=== PATIENT | male | born 1935 | race Caucasian/White ===

== ENCOUNTER 2020-01-26 13:34 | Outpatient (CLI) | payer OTHER, SELFPAY ==
--- NOTE | 2020-01-27 08:38 | ONC CON_ITS ---
Dr. Brownlee New Patient Note Patient: Simeon Harris Unit #: [id number]: 1935 Dicatated By: Brigido Brownlee M.D.Date of Visit: Jan 26, 2020 Onc MED New Patient/Consult Referring Physician: Libra Crowley A.P.N. Chief Complaint: Renal cell cancer. 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 He has hypertension, hyperlipidemia, and chronic kidney disease. He also has early stage dementia. In 2019 he was found to have a right renal mass, confirmed on biopsy to be papillary renal cell carcinoma. On 10/21/2018 he underwent robotic assisted retroperitoneal laparoscopic right partial nephrectomy. Pathology showed grade 1 papillary renal cell carcinoma, type I with oncocytic features measuring 4.9 x 3.3 x 3.3 cm. The tumor was confined to the kidney. Pathologic staging was T1b, NX, as there was no lymph node included in the surgical specimen. Clinically he was N0, M0 (stage I). On 12/03/2019 he was evaluated with noncontrast CT urinary calculi protocol. 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 There was evidence of limited partial right nephrectomy without evidence of local recurrence along the operative bed. There were multiple left renal cysts without obvious solid left renal lesion. The most significant finding was increase in size of an aortocaval lymph node measuring 2.2 x 2.3 cm compared to 2.0 x 2.0 cm on the previous study. The findings were suspicious for metastatic involvement. On 01/04/[address] directed needle biopsy of the aortocaval lymph node. Pathology showed fragments of metastatic papillary renal cell carcinoma. It was noted that there was no lymph node tissue present. Staging PET/CT on 01/18/2020 showed a small focus of increased activity adjacent to the surgical site in the lower pole of the right kidney, maximum SUV 8.56, felt to be nonspecific and possibly indicative of tumor recurrence or activity in an adjacent calyx. Multiple hypoattenuating structures in the left kidney showed no FDG uptake and were felt to probably represent cysts. An enlarged anterior aortocaval lymph node situated just below the crossing of the renal vein with maximum SUV 5.92 was felt to possibly represent metastatic disease. No other FDG avid lymph nodes were identified. A focus of relatively increased activity in the bowel in the lower abdomen with SUV 12.[address] soft tissue lesion and was felt to most likely be inflammatory/physiologic. There were no other areas of abnormal uptake on that study. He is seen now for further management. He does report having some fatigue, though lately his energy has been a little better again. He is pretty active and doing light work. ECOG score is 1. His appetite has been good. His weight is been stable. He has no fever or night sweats. He has no shortness of breath, cough, or chest pain. He has noticed a change in his bowel habit, as he tends to have frequent small stools throughout the day. He has no other GI complaints. He has urinary frequency and nocturia. He has some pain in his right shoulder. He currently has no other joint or bone pain. He does not complain of headache or dizziness. He has no focal neurologic symptoms. Past Medical History: His medical history includes chronic kidney disease, degenerative arthritis, dementia, hyperlipidemia, hypertension, peripheral arterial disease, and retinal detachment, left eye. Past Surgical History: He underwnent robotic assisted retroperitoneal laparoscopic right partial nephrectomy on 10/21/2018, and he underwent CT directed needle biopsy of aortocaval lymph node on 01/04/2020. His other surgical/procedural history includes ilateral cataract excisions, laser surgery on the left eye x 2 for detached retina, open reduction/internal fixation for left hip fracture, and tonsillectomy. Medications: cloNIDine HCl 1 Tablet (of 0.1 mg) Oral daily, Cozaar 1 Tablet (of 100 mg) Oral daily, Lovastatin 1 Tablet (of 10 mg) Oral daily, Multivitamin 1 Tablet Oral daily, Vitamin C 1 Tablet (of 500 mg) Oral daily Allergies: Aleve Social History: Mr. Harris is and he is an unknown. Mr. Harris has never smoked. He has no history of drinking. He is a non-smoker. He does not drink alcohol. Family History: Father with dementia at age 77. Mother at 92 of old age. One brother of pneumonia at age 70. Another brother has been treated for prostate cancer. Two sisters of heart failure, one of whom also had diabetes. A son of heart failure at age 50. Review Of Symptoms: Constitutional - He generally feels good. His energy is recently better than it had been. He is able to do light work. His appetite is good and his weight is stable. No fever, night sweats, or hot flashes. ECOG score is 1, Eyes - No recent change in vision, ENMT - He has hearing loss. No sinus congestion/drainage. No mouth sores. No sore throat or difficulty swallowing. He wears bilateral hearing aids, Hematologic/Lymphatic - He bruises easily, Respiratory - No shortness of breath. No cough. No pleuritic pain or hemoptysis, Cardiovascular - No angina pain. No palpitations, Gastrointestinal - No nausea or vomiting. No heartburn or acid reflux. No diarrhea. He has been having constipation, he denies taking anything for this. No blood in the stool or black stools, Genitourinary (M) - No dysuria or hematuria. He has urinary frequency and noctura. No urgency or incontinence, Musculoskeletal - He has arthritis pain in his right shoulder. This is chronic, Integumentary - He has had skin cancers excised, Neurologic - No headache or dizziness. No numbness or tingling. No other focal neurologic symptoms, Psychiatric - No anxiety or depression. No insomnia. He has early stage dementia. Vital Signs: Performed on Jan 26, 2020 14:15: 0, 26.12, 2.14 sq.m, 73.00 in, 97 %, 67 /min, 22 /min, 154/77 mm(hg) (HIGH), 98.3 F (LOW), and 198.0 lbs (HIGH). Physical Examination: Constitutional - He looks good generally, Eyes - Sclerae nonicteric. Conjunctivae clear, ENMT - No lesions noted in the oral cavity, Neck - No mass or thyromegaly, Hematologic/Lymphatic - No cervical, clavicular, or axillary adenopathy, Respiratory - Lungs are clear with good air movement bilaterally, Cardiovascular - Heart rhythm is regular. There is a II/ systolic murmur. There is no gallop or rub noted, Abdomen - Soft and non-tender. Liver and spleen are not enlarged. There is no abdominal mass or ascites noted and there is no inguinal adenopathy, Back/Spine - No spine or CVA tenderness noted, Extremities - No edema. Dorsalis pedis pulses are palpable bilaterally, Integumentary - No rashes. No suspicious skin lesions noted, Neurologic - No focal neurologic deficits noted. Impression: 1. Patient with grade 1 papillary renal cell carcinoma, type I with oncocytic features, for which he underwent robotic assisted retroperitoneal laparoscopic right partial nephrectomy on 10/21/2018. His disease was pathologic stage T1b, NX. 2. He now has evidence of stage IV disease with biopsy-proven metastatic papillary renal cell carcinoma involving an aortocaval lymph node. His staging PET/CT on 01/18/2020 showed mild FDG uptake in the enlarged node, SUV 5.92. Also noted was a small focus of uptake adjacent to the surgical site in the lower pole of the right kidney felt to be nonspecific but possibly indicative of tumor recurrence. His other medical illnesses include: 3. Hypertension. 4. Hyperlipidemia. 5. Chronic kidney disease, stage IV. 6. Peripheral arterial disease. 7. Degenerative arthritis. 8. Early stage dementia. Plan: I reviewed the CT and PET/CT findings and the pathology results. We discussed the clinical implications. He has documented recurrence of the renal cell cancer with involvement in a slowly enlarging aortocaval lymph node. There is a possibility of additional recurrence at the surgical site, but that was felt to be a nonspecific finding. There were no other suspicious findings on the PET/CT. I reviewed treatment options, and given his age and underlying medical illnesses he is probably not a suitable candidate for surgical resection, and the location of the lesion is such that it is not likely to be amenable to SBRT. As such, the best option available would be a trial of therapy with a tyrosine kinase inhibitor, which in the first line would most likely be sunitinib. We discussed the fact that it would potentially have side effects which may include fatigue, hypertension, skin rash, proteinuria, and low blood counts as well as some risk of hepatic and/or cardiac toxicity, among others. We also discussed the fact that his disease has been progressing very slowly and with localized involvement I would expect a significant time interval before his disease becomes symptomatic, at least in the range of 1 to 2 years. In that regard, observation/symptomatic management may be his best option, at least initially. I do want to review the PET/CT with the radiation oncologist, but my expectation is that we will just want to follow this closely with serial, noncontrast CT scans. Both patient and his seem very satisfied with this recommendation. At this point I will tentatively plan follow-up at a 6-month interval. Signed By: Brigido Brownlee M.D. <<Signature on File>>
== END 2020-01-26 13:35 | disposition home or self-care (01) ==
PROVIDERS: PCP Nurse Practitioner; Visit Provider Internal Medicine Medical Oncology
DX: C64.1 Malignant neoplasm of right kidney, except renal pelvis (principal); C77.2 Secondary and unspecified malignant neoplasm of intra-abdominal lymph nodes; I12.9 Hypertensive chronic kidney disease with stage 1 through stage 4 chronic kidney disease, or unspecified chronic kidney disease; N18.4 Chronic kidney disease, stage 4 (severe); E78.5 Hyperlipidemia, unspecified; I73.9 Peripheral vascular disease, unspecified; M19.90 Unspecified osteoarthritis, unspecified site; F03.90 Unspecified dementia, unspecified severity, without behavioral disturbance, psychotic disturbance, mood disturbance, and anxiety; Z90.5 Acquired absence of kidney
CPT/HCPCS: 99205

== ENCOUNTER 2020-07-26 13:16 | Outpatient (CLI) | payer OTHER, SELFPAY ==
--- NOTE | 2020-07-26 13:22 | CT_ITS ---
WS: [id number] CT ABDOMEN AND PELVIS NONCONTRAST HISTORY: RENAL CELL CARCINOMA TECHNIQUE: Imaging performed through the abdomen and pelvis. Coronal and sagittal reformats are submi tted. All CT scans at [facility] use at least one of these dose optimization techniques: automated exposure control; mA and/or kV adjustment per patient size (includes targeted exams where d ose is matched to clinical indication); or iterative reconstruction. DLP: 1220.75 mGycm COMPARISON: 12/03/2019. PET CT 01/18/2020. Lower thorax: Mild emphysema the lung bases. Heart size is normal. Small hiatal hernia. Liver: Negative noncontrast CT. Gallbladder: Normal gallbladder. Pancreas: Mild atrophy and fatty replacement. No mass identified. Spleen: Normal. Adrenal glands: Calcified RIGHT adrenal gland with no mass. LEFT adrenal gland is negative. Right kidney: Small RIGHT kidney. Postsurgical changes are noted along the mid and lower pole of the kidney from prior tumor resection most likely. There is mild adjacent cortical scarring. Similar to t he prior study from 2019. No obstruction. Left kidney: Numerous cystic masses in the LEFT kidney are stable. None of the masses have increased in size. These are probably cysts. Cannot further characterize without IV contrast. Aorta: Mild atherosclerosis abdominal aorta with no aneurysm. Aortocaval mass measures 2.4 x 2.0 cm. This was also present on the study of 12/02/2020 without increa se in size. Subcentimeter lymph node along the proximal LEFT iliac chain. GI tract: No obstructive pattern. Mild diffuse constipation. The appendix is normal. Severe distal co jakob diverticular disease. No evidence for acute diverticulitis. Abdominal wall: RIGHT lateral abdominal wall hernia contains fat. There is a small amount of colon th e orifice of the hernia. No obstructive pattern. Pelvis: No free fluid or adenopathy. Normally distended urinary bladder. Osseous structures: LEFT hip ORIF. CT/CT abdomen pelvis wo con [id number] IMPRESSION: 1. Status post partial RIGHT nephrectomy. Stable postsurgical changes. 2. LEFT renal cysts. Cannot evaluate for solid tumors or subtle tumors without IV contrast. 3. Aortocaval mass is probably a cluster of lymph nodes measuring 2.4 x 2.0 cm . Not significantly increased in size since 12/03/2019 but increased since 05/06. 4. Atherosclerosis aorta. 5. Severe distal colon diverticulosis without diverticulitis.
== END 2020-07-26 13:17 | disposition home or self-care (01) ==
LOC: RADWPI 13:19
PROVIDERS: PCP Nurse Practitioner; Visit Provider Internal Medicine Medical Oncology
DX: C64.1 Malignant neoplasm of right kidney, except renal pelvis (principal); K57.90 Diverticulosis of intestine, part unspecified, without perforation or abscess without bleeding; I70.0 Atherosclerosis of aorta; Q61.02 Congenital multiple renal cysts; Z90.5 Acquired absence of kidney
CPT/HCPCS: 74176

== ENCOUNTER 2020-08-01 08:57 | Outpatient (CLI) | payer OTHER, SELFPAY ==
--- NOTE | 2020-08-01 09:36 | ONC FU_ITS ---
Dr. Brownlee Patient Follow-Up Note Patient: Simeon Harris Unit #: [id number]: 1935 Dicatated By: Brigido Brownlee M.D.Date of Visit:Aug 01, 2020 Onc Med Follow-up/Prog Note Chief Complaint: Renal cell cancer. 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 He has hypertension, hyperlipidemia, and chronic kidney disease. He also has early stage dementia. In 2018 he was found to have a right renal mass, confirmed on biopsy to be papillary renal cell carcinoma. On 10/21/2018 he underwent robotic assisted retroperitoneal laparoscopic right partial nephrectomy. Pathology showed grade 1 papillary renal cell carcinoma, type I with oncocytic features measuring 4.9 x 3.3 x 3.3 cm. The tumor was confined to the kidney. Pathologic staging was T1b, NX, as there was no lymph node included in the surgical specimen. Clinically he was N0, M0 (stage I). On 12/03/2019 he was evaluated with noncontrast CT urinary calculi protocol. 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 There was evidence of limited partial right nephrectomy without evidence of local recurrence along the operative bed. There were multiple left renal cysts without obvious solid left renal lesion. The most significant finding was increase in size of an aortocaval lymph node measuring 2.2 x 2.3 cm compared to 2.0 x 2.0 cm on the previous study. The findings were suspicious for metastatic involvement. On 01/04/[address] directed needle biopsy of the aortocaval lymph node. Pathology showed fragments of metastatic papillary renal cell carcinoma. It was noted that there was no lymph node tissue present. Staging PET/CT on 01/18/2020 showed a small focus of increased activity adjacent to the surgical site in the lower pole of the right kidney, maximum SUV 8.56, felt to be nonspecific and possibly indicative of tumor recurrence or activity in an adjacent calyx. Multiple hypoattenuating structures in the left kidney showed no FDG uptake and were felt to probably represent cysts. An enlarged anterior aortocaval lymph node situated just below the crossing of the renal vein with maximum SUV 5.92 was felt to possibly represent metastatic disease. No other FDG avid lymph nodes were identified. A focus of relatively increased activity in the bowel in the lower abdomen with SUV 12.[address] soft tissue lesion and was felt to most likely be inflammatory/physiologic. There were no other areas of abnormal uptake on that study. I had seen him initially on 01/26/2020. As he appeared to have slowly progressive, asymptomatic disease, we opted to just continue with observation/expectant management. His repeat CT abdomen/pelvis on 07/26/2020 showed an aortocaval mass measuring 2.4 x 2.0 cm, unchanged compared to the previous study from November 2019. Subcentimeter lymph nodes were noted along the proximal left iliac chain. Numerous cystic masses in the left kidney also appeared stable. Also noted was evidence of severe distal colon diverticulosis but without diverticulitis. Overall, there was no evidence of disease progression. He is seen for a follow-up visit. He notes that he has gone downhill a lot since he turned 80. His indicates that he has recently been more fatigued and that he takes a lot of naps. He is still doing light work. ECOG score is 1. His appetite has not been as good, but his weight is up a few pounds. He does not have fever or night sweats. He does not complain of shortness of breath, cough, or chest pain. His other main complaint is that he has had a change in his bowel habit with 6-8 small bowel movements daily, described as a dab of stool at a time. It is not diarrhea, though. He does have to wear a diaper. It has been getting gradually worse over a couple of years. His last colonoscopy was done in [place], estimated in the range of 10 years ago. He also has more frequent urination with associated nocturia. He has arthritis pain in his shoulders, especially at night, and he does take a pain pill at bedtime. He does not complain of headache or dizziness, and he has no focal neurologic symptoms. He does have ongoing memory issues. Medications: cloNIDine HCl 1 Tablet (of 0.1 mg) Oral daily, Cozaar 1 Tablet (of 100 mg) Oral daily, Lovastatin 1 Tablet (of 10 mg) Oral daily, Multivitamin 1 Tablet Oral daily, Vitamin C 1 Tablet (of 500 mg) Oral daily Allergies: Aleve Vital Signs: Performed on Aug 01, 2020 08:54 Height - 73.00 in Weight - 204 lbs (HIGH) BSA - 2.17 sq.m BMI - 26.91 Temperature - 97.0 F (LOW) Pulse - 62 /min Respiration - 18 /min BP - 140/80 mm(hg) O2 Sat - 96 % Pain - 0 Physical Examination: Constitutional - He looks pretty good generally, Eyes - Sclerae nonicteric. Conjunctivae clear, ENMT - No lesions noted in the oral cavity, Hematologic/Lymphatic - No cervical, clavicular, or axillary adenopathy, Respiratory - Lungs are clear with good air movement bilaterally, Cardiovascular - Heart rhythm is regular. There is a II/ systolic murmur. There is no gallop or rub noted, Abdomen - Mildly distended and tympanic. Liver and spleen are not enlarged. There is no abdominal mass or ascites noted and there is no inguinal adenopathy, Extremities - Mild edema, Neurologic - No focal neurologic deficits noted. Lab/Imaging: Test performed on Jun 30, 2020 10:47 TSH 3.043 uU/mL Cholesterol, Total 157 mg/dL Glucose 85 mg/dL Vitamin D (25-Hydroxy) 38.7 ng/mL BUN 30 mg/dL HDL Cholesterol 30.4 mg/dL Creatinine 2.03 mg/dL LDL Cholesterol 57.8 mg/dL Cr Clearance (Est) 33.80 mL/min Triglycerides 305 mg/dL Sodium 142 mmol/L Potassium 5.7 mmol/L Chloride 108 mmol/L CO2 24 mmol/L Calcium 9.2 mg/dL Protein, Total 8.1 g/dL Albumin 4.5 g/dL Bilirubin, Total 0.6 mg/dL Alkaline Phosphatase 60 IU/L AST (SGOT) 18 IU/L ALT (SGPT) 16 IU/L Hemoglobin A1C 5.5 % Ua Color YELLOW WBC 7.3 10^9/L RBC 4.32 10^12/L Ua Appearance CLEAR HGB 13.4 g/dL Ua Specific [place] 1.021 HCT 41.6 % Ua pH 7 MCV 96.3 fl Ua Protein 30 MG/DL MCH 31 pg Ua Glucose NEGATIVE MCHC 32.2 g/dL Ua Ketones NEGATIVE RDW 12.1 % Ua Blood NEGATIVE Platelet Count 243 10^9/L Ua Leuk Esterase NEGATIVE MPV 9.4 fL Ua Nitrites NEGATIVE Neutrophils (Gran) 4.26 10^9/L Ua Bilirubin NEGATIVE Lymphocytes 2.1754 10^9/L Ua Urobilinogen NORMAL Monocytes 0.7154 10^9/L Eosinophils 0.0511 10^9/L Basophils 0.0584 10^9/L U Micro: Mucus RARE Problem List: 1. Grade 1 papillary renal cell carcinoma, type I with oncocytic features, for which he underwent robotic assisted retroperitoneal laparoscopic right partial nephrectomy on 10/21/2018. His disease was pathologic stage T1b, NX. He had subsequent progression to stage IV with biopsy-proven metastatic papillary renal cell carcinoma involving an aortocaval lymph node in December 2019. 2. Hypertension. 3. Hyperlipidemia. 4. Chronic kidney disease, stage IV. 5. Peripheral arterial disease. 6. Degenerative arthritis. 7. Early stage dementia. Problems Addressed with this Encounter and Plan: Patient with grade 1 papillary renal cell carcinoma, type I with oncocytic features, for which he underwent robotic assisted retroperitoneal laparoscopic right partial nephrectomy on 10/21/2018. His disease was pathologic stage T1b, NX. He had subsequent progression to stage IV disease with biopsy-proven metastatic papillary renal cell carcinoma involving an aortocaval lymph node in December 2019. His staging PET/CT on 01/18/2020 showed mild FDG uptake in the enlarged node, SUV 5.92. Also noted was a small focus of uptake adjacent to the surgical site in the lower pole of the right kidney felt to be nonspecific but possibly indicative of tumor recurrence. I had seen him initially on 01/26/2020. Given his age and underlying medical illnesses, we opted initially to just monitor on observation/expectant management. During follow-up there has been some further decline in his energy/activity tolerance and also is reporting a change in his bowel habit. Overall, though, he is still doing pretty well clinically, and his repeat CT abdomen/pelvis shows no change in the aortocaval mass or other evidence of disease progression. As such, he remains on observation/expectant management. I will see him again with repeat CT abdomen/pelvis in 3 months. Signed By: Brigido Brownlee M.D. <<Signature on File>>
== END 2020-08-01 08:58 | disposition home or self-care (01) ==
LOC: ONCMED 08:58
PROVIDERS: PCP Nurse Practitioner; Visit Provider Internal Medicine Medical Oncology
DX: C64.1 Malignant neoplasm of right kidney, except renal pelvis (principal); C77.2 Secondary and unspecified malignant neoplasm of intra-abdominal lymph nodes; Z90.5 Acquired absence of kidney
CPT/HCPCS: 99214

== ENCOUNTER 2020-10-27 15:05 | Outpatient (CLI) | payer OTHER, SELFPAY ==
[2020-10-27 16:04] LABS: Albumin Level 4.3 g/dL (3.5-5.2); Anion Gap 14.7 (5-19); Blood Urea Nitrogen 33 mg/dL (8-23); Calcium 8.7 mg/dL (8.5-10.5); Carbon Dioxide 23 mmol/L (22-29); Chloride 108 mmol/L (98-107); Glucose 101 mg/dL (65-115); Phosphorus 4.5 mg/dL (2.5-4.5); Potassium 5.7 mmol/L (3.5-5.1); Sodium 140 mmol/L (136-145)
[2020-10-27 16:18] LABS: Creatinine Urine, Random 161 mg/dL (39-259); Microalbum Creatinine Ratio Ur 19 mg/dL (0-20); Microalbumin Random Urine 3 ug/dL (0-20)
== END 2020-10-27 15:06 | disposition home or self-care (01) ==
PROVIDERS: PCP Nurse Practitioner; Visit Provider Internal Medicine Nephrology
DX: N18.32 Chronic kidney disease, stage 3b (principal)
CPT/HCPCS: 80069; 82044

== ENCOUNTER 2020-11-02 09:42 | Outpatient (CLI) | payer OTHER, SELFPAY ==
--- NOTE | 2020-11-02 09:50 | CT_ITS ---
WS: [id number] CT ABDOMEN AND PELVIS NONCONTRAST HISTORY: RENAL CELL CANCER TECHNIQUE: Imaging performed through the abdomen and pelvis. Coronal and sagittal reformats are submi tted. All CT scans at [facility] use at least one of these dose optimization techniques: automated exposure control; mA and/or kV adjustment per patient size (includes targeted exams where d ose is matched to clinical indication); or iterative reconstruction. DLP: 1152.45 mGycm COMPARISON: 07/26/2020, 12/03/2019 and 05/06/2018 Lower thorax: Mild pulmonary hyperexpansion. Linear scarring at the lung bases. No pulmonary nodule o r mass. Heart size is normal. Small hiatal hernia. Liver: Unenhanced. No abnormality. Gallbladder: Normal gallbladder. Pancreas: Normal size and attenuation. Normal pancreatic duct. No pancreatitis or mass. Spleen: Normal. Adrenal glands: Shrunken calcified RIGHT adrenal gland. Stable. Negative LEFT adrenal gland. Right kidney: Partial RIGHT nephrectomy. Postsurgical sutures are noted along the posterior RIGHT kid mag. There is a small amount of stranding adjacent to the surgical clips. No new mass is identified o n this unenhanced study. No obstruction. Left kidney: Normal size kidney with multiple cystic masses. There is a large cortical cyst with a ma ximum diameter of 5.7 cm from the lower pole. There are additional cysts and parapelvic cysts identif ied. Areas of enhancement cannot be excluded without IV contrast. Aorta: Mild atherosclerosis. Soft tissue mass is aortocaval measuring 2.3 x 1.8 cm which was also present on prior studies without increase in size. This is probably a cluster of lymph nodes. No change since 12/03/2019. GI tract: Mild constipation. The appendix is normal. Numerous sigmoid and descending colon diverticul ar disease. There is increased amount of fat surrounding the sigmoid. No acute diverticulitis or obst ruction. Abdominal wall: Hernia extending laterally between the RIGHT abdominal wall musculature. Hernia cont ains fat only with a loop of colon extending into the very proximal orifice of the hernia. Pelvis: Mildly enlarged prostate gland. No adenopathy or free fluid. Osseous structures: No osteoblastic or osteolytic bone disease. Prior pinning LEFT femoral neck fract ure. CT/CT abdomen pelvis wo con [id number] IMPRESSION: 1. Status post partial RIGHT nephrectomy. No evidence for recurrent mass. This study was performed without IV contrast. 2. Multiple stable LEFT renal cysts. 3. Stable aortocaval lymph node since 12/03/2019. 4. Extensive sigmoid and descending colon diverticulosis without diverticuliti s.
[2020-11-02] MEDS: iohexol 300 mg/mL 50 mL Btl PO (09:51)
[2020-11-02 15:19] LABS: Eosinophils # 0.1 10^3/uL (0.0-0.8); Hematocrit 37.2 % (42.0-52.0); Lymphocytes # 1.1 10^3/uL (0.8-4.8); Lymphocytes % 27.6 %; Mean Corpuscular HGB Conc 32.3 g/dL (30.0-36.0); Mean Corpuscular Hemoglobin 31.3 pg (28.0-34.0); Mean Corpuscular Volume 97.1 fL (80-94); Mean Platelet Volume 8.6 fL (7.4-10.4); Monocytes # 0.5 10^3/uL (0.2-0.9); Neutrophils # 2.35 10^3/uL (1.8-7.7); Neutrophils % 57.2 %; Nucleated Red Blood Cells % 0 %; Platelet Count 220 10^3/cmm (130-400); Red Blood Count 3.83 10^6/uL (4.1-5.3); Red Cell Distribution Width 11.9 % (12.1-15.1); White Blood Count 4.1 10^3/uL (4.0-10.0)
[2020-11-02 15:58] LABS: Alanine Aminotransferase 9 U/L (0-41); Albumin Level 3.9 g/dL (3.5-5.2); Alkaline Phosphatase 59 IU/L (40-130); Anion Gap 14.6 (5-19); Aspartate Amino Transferase 14 U/L (0-40); Blood Urea Nitrogen 28 mg/dL (8-23); Calcium 8.4 mg/dL (8.5-10.5); Carbon Dioxide 24 mmol/L (22-29); Chloride 106 mmol/L (98-107); Globulin 2.8 g/dL (1.3-4.6); Glucose 127 mg/dL (65-115); Lactate Dehydrogenase 167 U/L (135-225); Osmolality Calculated 295 mOsm/kg (285-295); Potassium 5.6 mmol/L (3.5-5.1); Sodium 139 mmol/L (136-145); Thyroid Stimulating Hormone 3.28 uIU/mL (0.27-4.20); Total Bilirubin 0.7 mg/dL (0.15-1.2); Total Protein 6.7 g/dL (6.6-8.7); Vitamin B12 393 pg/mL (232-1245)
--- NOTE | 2020-11-06 06:43 | ONC FU_ITS ---
Dr. Brownlee Patient Follow-Up Note Patient: Simeon Harris Unit #: [id number]: 1935 Dicatated By: Brigido Brownlee M.D.Date of Visit:Nov 02, 2020 Onc Med Follow-up/Prog Note Chief Complaint: Renal cell cancer. 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 He has hypertension, hyperlipidemia, and chronic kidney disease. He also has early stage dementia. In 2018 he was found to have a right renal mass, confirmed on biopsy to be papillary renal cell carcinoma. On 10/21/2018 he underwent robotic assisted retroperitoneal laparoscopic right partial nephrectomy. Pathology showed grade 1 papillary renal cell carcinoma, type I with oncocytic features measuring 4.9 x 3.3 x 3.3 cm. The tumor was confined to the kidney. Pathologic staging was T1b, NX, as there was no lymph node included in the surgical specimen. Clinically he was N0, M0 (stage I). On 12/03/2019 he was evaluated with noncontrast CT urinary calculi protocol. 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 There was evidence of limited partial right nephrectomy without evidence of local recurrence along the operative bed. There were multiple left renal cysts without obvious solid left renal lesion. The most significant finding was increase in size of an aortocaval lymph node measuring 2.2 x 2.3 cm compared to 2.0 x 2.0 cm on the previous study. The findings were suspicious for metastatic involvement. On 01/04/[address] directed needle biopsy of the aortocaval lymph node. Pathology showed fragments of metastatic papillary renal cell carcinoma. It was noted that there was no lymph node tissue present. Staging PET/CT on 01/18/2020 showed a small focus of increased activity adjacent to the surgical site in the lower pole of the right kidney, maximum SUV 8.56, felt to be nonspecific and possibly indicative of tumor recurrence or activity in an adjacent calyx. Multiple hypoattenuating structures in the left kidney showed no FDG uptake and were felt to probably represent cysts. An enlarged anterior aortocaval lymph node situated just below the crossing of the renal vein with maximum SUV 5.92 was felt to possibly represent metastatic disease. No other FDG avid lymph nodes were identified. A focus of relatively increased activity in the bowel in the lower abdomen with SUV 12.[address] soft tissue lesion and was felt to most likely be inflammatory/physiologic. There were no other areas of abnormal uptake on that study. I had seen him initially on 01/26/2020. As he appeared to have slowly progressive, asymptomatic disease, we opted to just continue with observation/expectant management. His repeat CT abdomen/pelvis on 07/26/2020 showed an aortocaval mass measuring 2.4 x 2.0 cm, unchanged compared to the previous study from November 2019. Subcentimeter lymph nodes were noted along the proximal left iliac chain. Numerous cystic masses in the left kidney also appeared stable. Also noted was evidence of severe distal colon diverticulosis but without diverticulitis. Overall, there was no evidence of disease progression. With those findings, he opted to continue expectant management. His medical illnesses include hypertension, hyperlipidemia, chronic kidney disease, peripheral arterial disease, and degenerative arthritis. He also was determined to have early stage dementia. He is a non-smoker. INTERIM HISTORY: His surveillance CT abdomen/pelvis on 11/02/2020 showed aortic caval soft tissue mass measuring 2.3 x 1.8 cm, similar in size compared to the previous study from November 2019. There was no other evidence of recurrent or metastatic disease. Multiple left renal cysts appeared stable. He is seen for a follow-up visit. He has been feeling pretty good generally, though he does tire out pretty quick. He is able to do light work, but after about 15 minutes he does have to stop and rest. His ECOG score is 1. His appetite has been okay. He does not have fever or night sweats. His notes that his breathing is sometimes shallow when he is asleep, and he does tend to snore. He does not complain of shortness of breath or cough, and he has not been having chest pain. He has no GI complaints other than his stools are sometimes small, like a goat . Bladder function has been okay. He has had some pain in his right shoulder, but no other joint or bone pain. He does not complain of headache or dizziness. He has no focal neurologic symptoms. Medications: cloNIDine HCl 1 Tablet (of 0.1 mg) Oral daily, Cozaar 1 Tablet (of 100 mg) Oral daily, Lovastatin 1 Tablet (of 10 mg) Oral daily, Multivitamin 1 Tablet Oral daily, traMADol HCl (50 mg) Tablet Oral b.i.d. PRN, Vitamin C 1 Tablet (of 500 mg) Oral daily Allergies: Aleve Vital Signs: Performed on Nov 02, 2020 15:20 Height - 73.00 in Weight - 196.4 lbs (LOW) BSA - 2.14 sq.m BMI - 25.91 Temperature - 98.6 F Pulse - 62 /min Respiration - 18 /min BP - 138/73 mm(hg) O2 Sat - 96 % Pain - 0 Fatigue - 10 Physical Examination: Constitutional - He looks pretty good generally, Eyes - Sclerae nonicteric. Conjunctivae clear, ENMT - No lesions noted in the oral cavity, Hematologic/Lymphatic - No cervical, clavicular, or axillary adenopathy, Respiratory - Lungs are clear with good air movement bilaterally, Cardiovascular - Heart rhythm is regular. There is a II/ systolic murmur. There is no gallop or rub noted, Abdomen - Soft. Liver and spleen are not enlarged. There is no abdominal mass or ascites noted and there is no inguinal adenopathy, Extremities - No edema, Neurologic - No focal neurologic deficits noted. Lab/Imaging: CBC shows hemoglobin 12.0 g, white blood cell count 4100, and platelet count 220,000. Comprehensive metabolic profile shows stable renal function with BUN 28 and creatinine 1.7 mg/dL. Potassium is slightly high at 5.6 mmol/L. Bilirubin and liver enzymes are normal. LDH is normal at 167 U/L. B12 and TSH levels also are normal. Problem List: 1. Grade 1 papillary renal cell carcinoma, type I with oncocytic features, for which he underwent robotic assisted retroperitoneal laparoscopic right partial nephrectomy on 10/21/2018. His disease was pathologic stage T1b, NX. He had subsequent progression to stage IV with biopsy-proven metastatic papillary renal cell carcinoma involving an aortocaval lymph node in December 2019. 2. Hypertension. 3. Hyperlipidemia. 4. Chronic kidney disease, stage IV. 5. Peripheral arterial disease. 6. Degenerative arthritis. 7. Early stage dementia. Problems Addressed with this Encounter and Plan: Patient with grade 1 papillary renal cell carcinoma, type I with oncocytic features, for which he underwent robotic assisted retroperitoneal laparoscopic right partial nephrectomy on 10/21/2018. His disease was pathologic stage T1b, NX. He had subsequent progression to stage IV disease with biopsy-proven metastatic papillary renal cell carcinoma involving an aortocaval lymph node in December 2019. His staging PET/CT on 01/18/2020 showed mild FDG uptake in the enlarged node, SUV 5.92. Also noted was a small focus of uptake adjacent to the surgical site in the lower pole of the right kidney felt to be nonspecific but possibly indicative of tumor recurrence. I had seen him initially on 01/26/2020. Given his age and underlying medical illnesses, he had initially opted to just monitor on observation/expectant management. During follow-up there has been some further decline in his energy/activity tolerance, but overall he has been doing pretty well clinically. Thus far there has been no evidence of disease progression by surveillance CT scan. As such, he continues on observation/expectant management. I will see him again with repeat CT abdomen/pelvis in 3 months. Signed By: Brigido Brownlee M.D. <<Signature on File>>
== END 2020-11-02 09:43 | disposition home or self-care (01) ==
LOC: RADWPI 09:46 → ONCMED 14:01
PROVIDERS: PCP Nurse Practitioner; Visit Provider Internal Medicine Medical Oncology
DX: Z08 Encounter for follow-up examination after completed treatment for malignant neoplasm (principal); Z85.53 Personal history of malignant neoplasm of renal pelvis; I10 Essential (primary) hypertension; E78.5 Hyperlipidemia, unspecified; N18.4 Chronic kidney disease, stage 4 (severe); I73.9 Peripheral vascular disease, unspecified; M19.90 Unspecified osteoarthritis, unspecified site; F03.90 Unspecified dementia, unspecified severity, without behavioral disturbance, psychotic disturbance, mood disturbance, and anxiety; Z79.899 Other long term (current) drug therapy; Z92.21 Personal history of antineoplastic chemotherapy
CPT/HCPCS: 36415; 74176; 80053; 82607; 83615; 84443; 85025; 99214; Q9967

== ENCOUNTER 2021-01-26 14:06 | Outpatient (CLI) | payer OTHER, SELFPAY ==
--- NOTE | 2021-01-26 14:14 | CTR_ITS ---
PROCEDURE INFORMATION: Exam: CT Abdomen And Pelvis Without Contrast Exam date and time: 01/26/2021 2:14 PM Age: 85 years old Clinical indication: Condition or disease; Primary cancer: Renal cell cancer; Prior surgery; Surgery date: 6+ months; Surgery type: L hip canulated screws TECHNIQUE: Imaging protocol: Computed tomography of the abdomen and pelvis without contrast. Radiation optimization: All CT scans at this facility use at least one of these dose optimization techniques: automated exposure control; mA and/or kV adjustment per patient size (includes targeted exams where dose is matched to clinical indication); or iterative reconstruction. COMPARISON: CT abdomen pelvis wo con [id number] 11/02/2020 11:07 AM RADIATION DOSE METRICS: Total DLP (mGy-cm): 1584.82 FINDINGS: Liver: Normal. No mass. Gallbladder and bile ducts: Normal. No calcified stones. No ductal dilation. Pancreas: Fatty atrophic changes of the pancreas. No pancreatic ductal dilation. Spleen: Normal. No splenomegaly. Adrenal glands: Normal. No mass. Kidneys and ureters: Partial right nephrectomy changes at the lower pole. No evidence of the current mass. Multiple cysts noted within the left kidney measuring up to 6 cm in the lower pole. Please note evaluation of the left renal lesions are limited due to lack of IV contrast. Stomach and bowel: Extensive colonic diverticulosis predominantly centered within the descending and sigmoid colon. Appendix: No evidence of appendicitis. Intraperitoneal space: Unremarkable. No free air. No significant fluid collection. Vasculature: Similar moderate atherosclerotic calcification of the abdominal aorta and its distal branches. No abdominal aortic aneurysm. Lymph nodes: Similar appearance of an enlarged aortocaval lymph node measuring 2.5 x 1.7 cm (previously 2.4 x 2.0 cm) allowing for technical differences in exams series 2, image 33. Urinary bladder: Unremarkable as visualized. Reproductive: Unremarkable as visualized. Bones/joints: Left hip metallic pins and sequela of old left hip fracture noted in proper alignment. Generalized osseous demineralization. No acute fracture. Soft tissues: Focal area of fat herniation at the right lateral flank measuring 4 cm series 2, image 40. CT/CT abdomen pelvis wo con [id number] IMPRESSION: 1. Partial right nephrectomy changes. No evidence of localized recurrence. 2. Similar appearance of an enlarged aortocaval lymph node versus cluster of nodes. COMMENTS: Consistent with the [employer] [place] [employer]'s Incidental Findings Committee white paper (J Am Ender Radiol 2018): Any incidental renal lesion less than 1 cm or classified as too small to characterize, or any incidental cystic renal lesion characterized as simple-appearing, is likely benign. No follow-up imaging is recommended for these lesions per consensus recommendations based on imaging criteria. Radiation Dose CTDIVOL = (mGy): DLP = 1584.82 (mGy-cm)
[2021-01-26] MEDS: iohexol 300 mg/mL 50 mL Btl PO (15:44)
== END 2021-01-26 14:07 | disposition home or self-care (01) ==
LOC: CT 14:10
PROVIDERS: PCP Nurse Practitioner; Visit Provider Internal Medicine Medical Oncology
DX: C64.1 Malignant neoplasm of right kidney, except renal pelvis (principal); Z90.5 Acquired absence of kidney
CPT/HCPCS: 74176

== ENCOUNTER 2021-02-05 13:30 | Outpatient (CLI) | payer OTHER, SELFPAY ==
[2021-02-05 14:16] LABS: Basophils % 0.6 %; Eosinophils # 0.1 10^3/uL (0.0-0.8); Eosinophils % 1.1 %; Hemoglobin 12.4 g/dL (11.7-16.6); Lymphocytes # 1.3 10^3/uL (0.8-4.8); Lymphocytes % 20.2 %; Mean Corpuscular HGB Conc 31.8 g/dL (30.0-36.0); Mean Corpuscular Hemoglobin 30.8 pg (28.0-34.0); Mean Platelet Volume 8.7 fL (7.4-10.4); Monocytes # 0.7 10^3/uL (0.2-0.9); Monocytes % 11.8 %; Neutrophils # 4.14 10^3/uL (1.8-7.7); Neutrophils % 66.3 %; Nucleated Red Blood Cells % 0 %; Platelet Count 224 10^3/cmm (130-400); Red Blood Count 4.02 10^6/uL (4.1-5.3); Red Cell Distribution Width 12.4 % (12.1-15.1); White Blood Count 6.3 10^3/uL (4.0-10.0)
[2021-02-05 14:35] LABS: Alanine Aminotransferase 11 U/L (0-41); Albumin Level 4.1 g/dL (3.5-5.2); Alkaline Phosphatase 69 IU/L (40-130); Aspartate Amino Transferase 16 U/L (0-40); Blood Urea Nitrogen 23 mg/dL (8-23); Calcium 8.9 mg/dL (8.5-10.5); Carbon Dioxide 23 mmol/L (22-29); Chloride 107 mmol/L (98-107); Glucose 113 mg/dL (65-115); Lactate Dehydrogenase 179 U/L (135-225); Osmolality Calculated 290 mOsm/kg (285-295); Sodium 138 mmol/L (136-145); Total Bilirubin 0.5 mg/dL (0.15-1.2); Total Protein 7.1 g/dL (6.6-8.7)
--- NOTE | 2021-02-08 09:33 | ONC FU_ITS ---
Dr. Brownlee Patient Follow-Up Note Patient: Simeon Harris Unit #: [id number]: [id number] Dicatated By: Brigido Brownlee M.D.Date of Visit:Feb 05, 2021 Onc Med Follow-up/Prog Note Chief Complaint: Renal cell cancer. 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 He has hypertension, hyperlipidemia, and chronic kidney disease. He also has early stage dementia. In 2018 he was found to have a right renal mass, confirmed on biopsy to be papillary renal cell carcinoma. On 10/21/2018 he underwent robotic assisted retroperitoneal laparoscopic right partial nephrectomy. Pathology showed grade 1 papillary renal cell carcinoma, type I with oncocytic features measuring 4.9 x 3.3 x 3.3 cm. The tumor was confined to the kidney. Pathologic staging was T1b, NX, as there was no lymph node included in the surgical specimen. Clinically he was N0, M0 (stage I). On 12/03/2019 he was evaluated with noncontrast CT urinary calculi protocol. 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 There was evidence of limited partial right nephrectomy without evidence of local recurrence along the operative bed. There were multiple left renal cysts without obvious solid left renal lesion. The most significant finding was increase in size of an aortocaval lymph node measuring 2.2 x 2.3 cm compared to 2.0 x 2.0 cm on the previous study. The findings were suspicious for metastatic involvement. On 01/04/[address] directed needle biopsy of the aortocaval lymph node. Pathology showed fragments of metastatic papillary renal cell carcinoma. It was noted that there was no lymph node tissue present. Staging PET/CT on 01/18/2020 showed a small focus of increased activity adjacent to the surgical site in the lower pole of the right kidney, maximum SUV 8.56, felt to be nonspecific and possibly indicative of tumor recurrence or activity in an adjacent calyx. Multiple hypoattenuating structures in the left kidney showed no FDG uptake and were felt to probably represent cysts. An enlarged anterior aortocaval lymph node situated just below the crossing of the renal vein with maximum SUV 5.92 was felt to possibly represent metastatic disease. No other FDG avid lymph nodes were identified. A focus of relatively increased activity in the bowel in the lower abdomen with SUV 12.[address] soft tissue lesion and was felt to most likely be inflammatory/physiologic. There were no other areas of abnormal uptake on that study. I had seen him initially on 01/26/2020. As he appeared to have slowly progressive, asymptomatic disease, we opted to just continue with observation/expectant management. His repeat CT abdomen/pelvis on 07/26/2020 showed an aortocaval mass measuring 2.4 x 2.0 cm, unchanged compared to the previous study from November 2019. Subcentimeter lymph nodes were noted along the proximal left iliac chain. Numerous cystic masses in the left kidney also appeared stable. Also noted was evidence of severe distal colon diverticulosis but without diverticulitis. Overall, there was no evidence of disease progression. With those findings, he opted to continue expectant management. His medical illnesses include hypertension, hyperlipidemia, chronic kidney disease, peripheral arterial disease, and degenerative arthritis. He also was determined to have early stage dementia. He is a non-smoker. INTERIM HISTORY: His surveillance CT abdomen/pelvis on 11/02/2020 showed aortic caval soft tissue mass measuring 2.3 x 1.8 cm, similar in size compared to the previous study from November 2019. There was no other evidence of recurrent or metastatic disease. Multiple left renal cysts appeared stable. With those findings he continued expectant management. Noncontrast CT scans of the abdomen/pelvis on 01/26/2021 showed changes of partial right nephrectomy with no evidence of localized recurrence. The enlarged aortocaval lymph node measuring 2.5 x 1.7 cm had a similar appearance. There was no new lymphadenopathy or other evidence of metastatic disease. He is seen for a follow-up visit. He has not been feeling as good generally. He says his energy is slowing down. He is tired after 1 hour of activity, and after 2 hours he is exhausted. His ECOG score is 1. He has not been eating as much, though still on and off. He has been gradually losing weight, and he is down another 4 pounds since October. He does not have fever or night sweats. He has no shortness of breath, cough, or chest pain. He is not having nausea or abdominal pain. He has had some constipation, which he manages with Metamucil. He has been expelling some mucus with his bowel movement. He has urinary frequency and some nocturia, and he also has some urgency with urination. He has been having pain in his right shoulder, and he has limited range of motion. He has no other joint or bone pain. He does not complain of headache. He feels a little bit lightheaded if he overdoes it. He has no numbness/paresthesia or other focal neurologic symptoms. Medications: amLODIPine Besylate 1 Tablet (of 10 mg) Oral daily, cloNIDine HCl 1 Tablet (of 0.1 mg) Oral daily, Lovastatin 1 Tablet (of 10 mg) Oral daily, Multivitamin 1 Tablet Oral daily, traMADol HCl (50 mg) Tablet Oral b.i.d. PRN, Vitamin C 1 Tablet (of 500 mg) Oral daily Allergies: Aleve Vital Signs: Performed on Feb 05, 2021 15:57 Height - 73.00 in Weight - 192 lbs (LOW) BSA - 2.11 sq.m BMI - 25.33 Temperature - 99.5 F (HIGH) Pulse - 67 /min Respiration - 18 /min BP - 158/78 mm(hg) (HIGH) O2 Sat - 97 % Pain - 5 Fatigue - 6 Physical Examination: Constitutional - He looks pretty good generally, Eyes - Sclerae nonicteric. Conjunctivae clear, ENMT - No lesions noted in the oral cavity, Hematologic/Lymphatic - No cervical, clavicular, or axillary adenopathy, Respiratory - Lungs sound clear. He has good air movement bilaterally, Cardiovascular - Heart rhythm is regular. There is a II/ systolic murmur. There is no gallop or rub noted, Abdomen - Mildly distended. Liver and spleen are not enlarged. There is no abdominal mass or ascites noted and there is no inguinal adenopathy, Extremities - Slight edema, Neurologic - No focal neurologic deficits noted. Lab/Imaging: Test performed on Feb 05, 2021 13:45 LDH (Total) 179 U/L Sodium 138 mmol/L Potassium 6.0 mmol/L Chloride 107 mmol/L CO2 23 mmol/L Anion Gap 14.0 BUN 23 mg/dL Creatinine 1.8 mg/dL Cr Clearance (Est) 36.96 mL/min Glucose 113 mg/dL Osmolality - Calculated 290 mOsm/kg Calcium 8.9 mg/dL Protein, Total 7.1 g/dL Albumin 4.1 g/dL Globulin 3.0 g/dL Bilirubin, Total 0.5 mg/dL ALT (SGPT) 11 U/L AST (SGOT) 16 U/L Alkaline Phosphatase 69 IU/L WBC 6.3 10 3/uL RBC 4.02 10 6/uL HGB 12.4 g/dL HCT 39.0 % MCV 97.0 fl MCH 30.8 pg MCHC 31.8 g/dL RDW 12.4 % Platelet Count 224 10 3/cmm MPV 8.7 fL Neutrophils 4.14 10 3/uL Lymphocytes 1.3 10 3/uL Monocytes 0.7 10 3/uL Eosinophils 0.1 10 3/uL Basophils 0.0 10 3/uL Neutrophil % 66.3 % Lymphocyte % 20.2 % Monocyte % 11.8 % Eosinophil % 1.1 % Basophils % 0.6 % NRBC % 0 % Problem List: 1. Grade 1 papillary renal cell carcinoma, type I with oncocytic features, for which he underwent robotic assisted retroperitoneal laparoscopic right partial nephrectomy on 10/21/2018. His disease was pathologic stage T1b, NX. He had subsequent progression to stage IV with biopsy-proven metastatic papillary renal cell carcinoma involving an aortocaval lymph node in December 2019. 2. Hypertension. 3. Hyperlipidemia. 4. Chronic kidney disease, stage IV. 5. Peripheral arterial disease. 6. Degenerative arthritis. 7. Early stage dementia. Problems Addressed with this Encounter and Plan: 1. Patient with grade 1 papillary renal cell carcinoma, type I with oncocytic features, for which he underwent robotic assisted retroperitoneal laparoscopic right partial nephrectomy on 10/21/2018. His disease was pathologic stage T1b, NX. He had subsequent progression to stage IV disease with biopsy-proven metastatic papillary renal cell carcinoma involving an aortocaval lymph node in December 2019. His staging PET/CT on 01/18/2020 showed mild FDG uptake in the enlarged node, SUV 5.92. Also noted was a small focus of uptake adjacent to the surgical site in the lower pole of the right kidney felt to be nonspecific but possibly indicative of tumor recurrence. I had seen him initially on 01/26/2020. Given his age and underlying medical illnesses, he had initially opted to just monitor on observation/expectant management. During follow-up there has been gradual decline in his activity tolerance and he also has been losing weight gradually. His surveillance CT scans thus far have shown no obvious progression of the renal cell cancer, but I suspect that his decline is related to the malignancy, and there may be more going on than what we can see on the CT scan. Nonetheless, with nonclear cell histology the treatment options and the potential benefit with treatment are more limited, and under the circumstances I think the best option for the time being is to just continue with symptomatic/supportive care. I will see him again in 3 months, or sooner as needed. 2. He has hypertension and chronic kidney disease. His potassium has been mildly elevated and it has continued to increase despite the fact that he has not been on any potassium supplementation and he has been avoiding foods which are high in potassium content. As such, I will forward lab results to Dr. Cao for further management. Signed By: Brigido Brownlee M.D. <<Signature on File>>
== END 2021-02-05 13:31 | disposition home or self-care (01) ==
LOC: ONCMED 13:33
PROVIDERS: PCP Nurse Practitioner; Visit Provider Internal Medicine Medical Oncology
DX: Z08 Encounter for follow-up examination after completed treatment for malignant neoplasm (principal); Z85.528 Personal history of other malignant neoplasm of kidney; I10 Essential (primary) hypertension; E78.5 Hyperlipidemia, unspecified; N18.4 Chronic kidney disease, stage 4 (severe); I73.9 Peripheral vascular disease, unspecified; M19.90 Unspecified osteoarthritis, unspecified site; F03.90 Unspecified dementia, unspecified severity, without behavioral disturbance, psychotic disturbance, mood disturbance, and anxiety; Z79.899 Other long term (current) drug therapy; Z92.21 Personal history of antineoplastic chemotherapy
CPT/HCPCS: 36415; 80053; 83615; 85025; 99214

== ENCOUNTER → 2021-02-22 09:17 | Outpatient (BNVA) | payer OTHER, SELFPAY | PROVIDERS: PCP Nurse Practitioner; Visit Provider Internal Medicine Medical Oncology | DX: C64.1 Malignant neoplasm of right kidney, except renal pelvis (principal) | CPT/HCPCS: 83735; 84100; 85025 ==

== ENCOUNTER → 2021-04-30 09:20 | Outpatient (BNVA) | payer OTHER, SELFPAY | PROVIDERS: PCP Nurse Practitioner; Visit Provider Internal Medicine Nephrology | DX: N18.32 Chronic kidney disease, stage 3b (principal) | CPT/HCPCS: 80069; 82310; 83970; 85025 ==

== ENCOUNTER 2021-08-08 10:45 | Outpatient (CLI) | payer OTHER, SELFPAY ==
[2021-08-08 11:14] LABS: Basophils # 0.1 10^3/uL (0.0-0.1); Basophils % 1.1 %; Eosinophils # 0.1 10^3/uL (0.0-0.8); Eosinophils % 1.7 %; Hematocrit 39.8 % (42.0-52.0); Hemoglobin 13.3 g/dL (11.7-16.6); Lymphocytes # 1.5 10^3/uL (0.8-4.8); Lymphocytes % 28.7 %; Mean Corpuscular HGB Conc 33.4 g/dL (30.0-36.0); Mean Corpuscular Hemoglobin 31.6 pg (28.0-34.0); Mean Corpuscular Volume 94.5 fl (80-94); Mean Platelet Volume 8.3 fL (7.4-10.4); Monocytes # 0.6 10^3/uL (0.2-0.9); Neutrophils # 2.97 10^3/uL (1.8-7.7); Neutrophils % 56.3 %; Nucleated Red Blood Cells % 0 %; Platelet Count 220 10^3/cmm (130-400); Red Blood Count 4.21 10^6/uL (4.1-5.3); White Blood Count 5.3 10^3/uL (4.0-10.0)
[2021-08-08 11:45] LABS: Alanine Aminotransferase 12 U/L (0-41); Albumin Level 4.5 g/dL (3.5-5.2); Alkaline Phosphatase 67 IU/L (40-130); Anion Gap 13.2 (5-19); Aspartate Amino Transferase 15 U/L (0-40); Blood Urea Nitrogen 28 mg/dL (8-23); Calcium 9.7 mg/dL (8.5-10.5); Carbon Dioxide 25 mmol/L (22-29); Chloride 104 mmol/L (98-107); Glucose 90 mg/dL (65-115); Lactate Dehydrogenase 153 U/L (135-225); Osmolality Calculated 289 mOsm/kg (285-295); Potassium 5.2 mmol/L (3.5-5.1); Sodium 137 mmol/L (136-145); Total Bilirubin 0.5 mg/dL (0.15-1.2); Total Protein 7.5 g/dL (6.6-8.7)
--- NOTE | 2021-08-12 10:47 | ONC FU_ITS ---
Dr. Brownlee Patient Follow-Up Note Patient: Simeon Harris Unit #: [id number]: [id number] Dicatated By: Brigido Brownlee M.D.Date of Visit:Aug 08, 2021 Onc Med Follow-up/Prog Note Chief Complaint: Renal cell cancer. 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 He has hypertension, hyperlipidemia, and chronic kidney disease. He also has early stage dementia. In 2018 he was found to have a right renal mass, confirmed on biopsy to be papillary renal cell carcinoma. On 10/21/2018 he underwent robotic assisted retroperitoneal laparoscopic right partial nephrectomy. Pathology showed grade 1 papillary renal cell carcinoma, type I with oncocytic features measuring 4.9 x 3.3 x 3.3 cm. The tumor was confined to the kidney. Pathologic staging was T1b, NX, as there was no lymph node included in the surgical specimen. Clinically he was N0, M0 (stage I). On 12/03/2019 he was evaluated with noncontrast CT urinary calculi protocol. 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 There was evidence of limited partial right nephrectomy without evidence of local recurrence along the operative bed. There were multiple left renal cysts without obvious solid left renal lesion. The most significant finding was increase in size of an aortocaval lymph node measuring 2.2 x 2.3 cm compared to 2.0 x 2.0 cm on the previous study. The findings were suspicious for metastatic involvement. On 01/04/[address] directed needle biopsy of the aortocaval lymph node. Pathology showed fragments of metastatic papillary renal cell carcinoma. It was noted that there was no lymph node tissue present. Staging PET/CT on 01/18/2020 showed a small focus of increased activity adjacent to the surgical site in the lower pole of the right kidney, maximum SUV 8.56, felt to be nonspecific and possibly indicative of tumor recurrence or activity in an adjacent calyx. Multiple hypoattenuating structures in the left kidney showed no FDG uptake and were felt to probably represent cysts. An enlarged anterior aortocaval lymph node situated just below the crossing of the renal vein with maximum SUV 5.92 was felt to possibly represent metastatic disease. No other FDG avid lymph nodes were identified. A focus of relatively increased activity in the bowel in the lower abdomen with SUV 12.[address] soft tissue lesion and was felt to most likely be inflammatory/physiologic. There were no other areas of abnormal uptake on that study. I had seen him initially on 01/26/2020. As he appeared to have slowly progressive, asymptomatic disease, we opted to just continue with observation/expectant management. His repeat CT abdomen/pelvis on 07/26/2020 showed an aortocaval mass measuring 2.4 x 2.0 cm, unchanged compared to the previous study from November 2019. Subcentimeter lymph nodes were noted along the proximal left iliac chain. Numerous cystic masses in the left kidney also appeared stable. Also noted was evidence of severe distal colon diverticulosis but without diverticulitis. Overall, there was no evidence of disease progression. With those findings, he opted to continue expectant management. His medical illnesses include hypertension, hyperlipidemia, chronic kidney disease, peripheral arterial disease, and degenerative arthritis. He also was determined to have early stage dementia. He is a non-smoker. INTERIM HISTORY: His surveillance CT abdomen/pelvis on 11/02/2020 showed aortic caval soft tissue mass measuring 2.3 x 1.8 cm, similar in size compared to the previous study from November 2019. There was no other evidence of recurrent or metastatic disease. Multiple left renal cysts appeared stable. Noncontrast CT scans of the abdomen/pelvis on 01/26/2021 showed changes of partial right nephrectomy with no evidence of localized recurrence. The enlarged aortocaval lymph node measuring 2.5 x 1.7 cm had a similar appearance. There was no new lymphadenopathy or other evidence of metastatic disease. With those findings he continued expectant management. Restaging PET/CT on 07/19/2021 showed a single large upper aortocaval lymph node measuring 2.7 cm, SUV 15.29, consistent with metastatic involvement. Subcentimeter mediastinal lymph nodes with mild FDG activity were felt to be most consistent with inflammatory/reactive changes. There were no other findings highly suggestive of metastatic disease. He is seen for a follow-up visit. He has been feeling pretty good generally, though he continues to have some fatigue. He is able to do light work. His ECOG score is 1. His appetite is good. He has not had fever. He occasionally has mild sweating at night. He has not had sore mouth or throat. He does not complain of cough, and he has not been having shortness of breath or chest pain. He has no GI or complaints other than some urgency with urination. He has some pain in his right shoulder, but no other joint or bone pain. He does not complain of headache or dizziness, and he has no focal neurologic symptoms. Medications: amLODIPine Besylate 1 Tablet (of 10 mg) Oral daily, Chlorthalidone 1 Tablet (of 25 mg) Oral daily, cloNIDine HCl 1 Tablet (of 0.1 mg) Oral daily, Lovastatin 1 Tablet (of 10 mg) Oral daily, Multivitamin 1 Tablet Oral daily, traMADol HCl (50 mg) Tablet Oral b.i.d. PRN, Vitamin C 1 Tablet (of 500 mg) Oral daily Allergies: Aleve Vital Signs: Performed on Aug 08, 2021 12:20 Height - 73.00 in Weight - 192.2 lbs (HIGH) BSA - 2.12 sq.m BMI - 25.36 Temperature - 97.7 F (LOW) Pulse - 58 /min (LOW) Respiration - 16 /min BP - 132/80 mm(hg) O2 Sat - 98 % Pain - 0 Fatigue - 5 Physical Examination: Constitutional - He looks pretty good generally, Eyes - Sclerae nonicteric. Conjunctivae clear, ENMT - No lesions noted in the oral cavity, Hematologic/Lymphatic - No cervical, clavicular, or axillary adenopathy, Respiratory - Lungs sound clear. He has good air movement bilaterally, Cardiovascular - Heart rhythm is regular. There is no murmur, gallop, or rub noted, Abdomen - Mildly distended. Liver and spleen are not enlarged. There is no abdominal mass or ascites noted and there is no inguinal adenopathy, Extremities - No edema, Neurologic - No focal neurologic deficits noted. Lab/Imaging: Test performed on Aug 08, 2021 11:00 LDH (Total) 153 U/L Sodium 137 mmol/L Potassium 5.2 mmol/L Chloride 104 mmol/L CO2 25 mmol/L Anion Gap 13.2 BUN 28 mg/dL Creatinine 2.0 mg/dL Cr Clearance (Est) 32.69 mL/min Glucose 90 mg/dL Osmolality - Calculated 289 mOsm/kg Calcium 9.7 mg/dL Protein, Total 7.5 g/dL Albumin 4.5 g/dL Globulin 3.0 g/dL Bilirubin, Total 0.5 mg/dL ALT (SGPT) 12 U/L AST (SGOT) 15 U/L Alkaline Phosphatase 67 IU/L WBC 5.3 10 3/uL RBC 4.21 10 6/uL HGB 13.3 g/dL HCT 39.8 % MCV 94.5 fl MCH 31.6 pg MCHC 33.4 g/dL RDW 12.0 % Platelet Count 220 10 3/cmm MPV 8.3 fL Neutrophils 2.97 10 3/uL Lymphocytes 1.5 10 3/uL Monocytes 0.6 10 3/uL Eosinophils 0.1 10 3/uL Basophils 0.1 10 3/uL Neutrophil % 56.3 % Lymphocyte % 28.7 % Monocyte % 12.0 % Eosinophil % 1.7 % Basophils % 1.1 % NRBC % 0 % Problem List: 1. Grade 1 papillary renal cell carcinoma, type I with oncocytic features, for which he underwent robotic assisted retroperitoneal laparoscopic right partial nephrectomy on 10/21/2018. His disease was pathologic stage T1b, NX. He had subsequent progression to stage IV with biopsy-proven metastatic papillary renal cell carcinoma involving an aortocaval lymph node in December 2019. 2. Hypertension. 3. Hyperlipidemia. 4. Chronic kidney disease, stage IV. 5. Peripheral arterial disease. 6. Degenerative arthritis. 7. Early stage dementia. Problems Addressed with this Encounter and Plan: 1. Patient with grade 1 papillary renal cell carcinoma, type I with oncocytic features, for which he underwent robotic assisted retroperitoneal laparoscopic right partial nephrectomy on 10/21/2018. His disease was pathologic stage T1b, NX. He had subsequent progression to stage IV disease with biopsy-proven metastatic papillary renal cell carcinoma involving an aortocaval lymph node in December 2019. His staging PET/CT on 01/18/2020 showed mild FDG uptake in the enlarged node, SUV 5.92. Also noted was a small focus of uptake adjacent to the surgical site in the lower pole of the right kidney felt to be nonspecific but possibly indicative of tumor recurrence. I had seen him initially on 01/26/2020. Given his age and underlying medical illnesses, he had initially opted to just monitor on observation/expectant management. During follow-up there was gradual decline in his activity tolerance and he also had been losing weight gradually. However, his surveillance CT scans had shown no obvious progression of the renal cell cancer, and as of his follow-up visit in January 2021 I felt that it was still best to just continue with symptomatic/supportive care. At this point his clinical status appears stable. His recent PET/CT continues to show metastatic involvement limited to the aortocaval lymph node, which has not shown any significant increase in size. In the absence of any evidence of disease progression, he continues on observation/symptomatic management. I will see him again in 6 months, or sooner as needed. 2. He has hypertension and chronic kidney disease. His lab results will be forwarded to Dr. Cao. Signed By: Brigido Brownlee M.D. <<Signature on File>>
== END 2021-08-08 10:46 | disposition home or self-care (01) ==
PROVIDERS: PCP Nurse Practitioner; Visit Provider Internal Medicine Medical Oncology
DX: C64.1 Malignant neoplasm of right kidney, except renal pelvis (principal); I10 Essential (primary) hypertension; E78.5 Hyperlipidemia, unspecified; N18.4 Chronic kidney disease, stage 4 (severe); I73.9 Peripheral vascular disease, unspecified; F03.90 Unspecified dementia, unspecified severity, without behavioral disturbance, psychotic disturbance, mood disturbance, and anxiety; Z79.899 Other long term (current) drug therapy
CPT/HCPCS: 36415; 80053; 83615; 85025; 99214

== ENCOUNTER → 2021-11-07 10:25 | Outpatient (BNVA) | payer OTHER, SELFPAY | PROVIDERS: PCP Nurse Practitioner; Visit Provider Internal Medicine Nephrology | DX: N18.32 Chronic kidney disease, stage 3b (principal) | CPT/HCPCS: 80069; 82043; 82306; 82310; 83970; 85025 ==

== ENCOUNTER → 2021-11-13 15:43 | Outpatient (BNVA) | payer OTHER, SELFPAY | PROVIDERS: PCP Nurse Practitioner; Visit Provider Internal Medicine Nephrology | DX: M79.675 Pain in left toe(s) (principal) | CPT/HCPCS: 84550 ==